=== PATIENT | female | born 1945 | race Caucasian/White ===

== ENCOUNTER → 2025-07-14 13:44 | Outpatient (REF) | payer MEDICARE, SELFPAY | LOC: HWRAD 13:44 | PROVIDERS: ATTENDING PHYSICIAN Specialist | DX: T84.028A Dislocation of other internal joint prosthesis, initial encounter (principal); Z96.611 Presence of right artificial shoulder joint | CPT/HCPCS: 73200 ==

== ENCOUNTER 2025-08-11 08:17 | Inpatient (IN) | payer MEDICARE, SELFPAY ==
--- NOTE | 2025-07-31 09:57 | CM ---
Addendum entered by Latrice Rivero RN 08/11/25 13:48:
CM spoke and daughter at bedside. Patient confirmed that she is returning to her [place] address. In the event she will needs home OT pending PT evaluation, CM sent referral via [facility] to [facility]. CM will await acceptance by [facility].
Original Note:
Demographics: confirmed
Living situation: lives alone, daughter will be driving her back home to [place] and staying with her
Support Person Post Operatively: Daughter
History of
VN: yes, not currently on service
SNF: yes, cannot remember where
Outpatient: Pending surgical clearance
Has patient purchased required equipment: yes, has a cane
PCP: Ankita
Pharmacy: [address]
Post Operative Discharge Plan: Home with daughter.
[2025-08-02 11:32] LABS: Hematocrit 36.8 % (37.0-47.0); Hemoglobin 12.0 g/dL (12.0-16.0); Mean Corp Hgb Conc. 32.6 g/dL (33.0-37.0); Mean Corpuscular Volume 86.4 fL (81.0-99.0); Platelet Count 345 10^3/uL (130-400); Red Cell Dist. Width 13.7 % (11.5-14.5)
[2025-08-02 11:53] LABS: ALT (SGPT) 13 U/L (0-35); AST (SGOT) 23 U/L (14-36); Albumin 4.4 g/dl (3.5-5.0); Alkaline Phosphatase 73 U/L (38-126); Blood Urea Nitrogen 33 mg/dl (7-17); Calcium 9.5 mg/dl (8.4-10.2); Carbon Dioxide 26 mmol/L (22-30); Chloride 103 mmol/L (98-107); Glucose 66 mg/dl (70-99); Potassium 4.2 mmol/L (3.5-5.1); Sodium 137 mmol/L (135-145); Total Protein 7.4 g/dl (6.3-8.2); eGFR > 60.00
[2025-08-02 13:25] LABS: Glycohemoglobin (HgbA1c) 5.6 % (4.0-5.6)
[2025-08-02 14:22] VITALS: BMI 27.3
[2025-08-03 08:41] VITALS: BMI 27.3
[2025-08-11] VITALS (18 sets, daily range): BP systolic 79–139; BP diastolic 46–75; PULSE 57; O2SAT 100; BMI 27.3
[2025-08-11] MEDS: TYLENOL 1000 MG PO (09:15)
[2025-08-11] MEDS: CELEBREX 200 MG PO (09:19)
[2025-08-11] MEDS: NORMOSOL-R/PLASMALYTE-A 1000 IV ×2 (09:36→14:34)
[2025-08-11] MEDS: VANCOCIN 200 IV ×2 (09:39→20:00)
[2025-08-11] MEDS: ULTRAM 50 MG PO (12:14)
--- NOTE | 2025-08-11 12:21 | W.DS.TRANS ---
DC Summary - Media Marketing Director
-
Discharge Instructions:
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
p Revision of R Reverse TSA w/ Dr Abebe 08/11/2025
Diet Regular
Additional Diets Adequate hydration, minimize opioids, and wear
TEDS to prevent hypotension/dizziness.
Activity As tolerated
Additional Activity Non-weightbearing right upper extremity.
Driving Restrictions Not until seen by your Dr
Bathing Restrictions OK to Shower
Wound Care Dressing to be removed at 2 week follow-up with
surgeon's office.
Instructions:
Stand-Alone Forms: Total Shoulder Replacement D/C
Changes to Home Medications: Yes
Discharge Medications:
DC Medications w/original date entered in [facility]
alprazolam 0.5 mg tablet 0.5 mg PO DAILY PRN anxiety 07/31/25
cholecalciferol (vitamin D3) 125 mcg (5,000 unit) tablet (Vitamin D3) 250 mcg PO DAILY 07/31/25
estradiol 0.025 mg/24 hr weekly transdermal patch 1 patch transdermal SA 07/31/25
levothyroxine 75 mcg tablet (Synthroid) 75 mcg PO DAILY 07/31/25
liothyronine 5 mcg tablet 5 mcg PO DAILY 07/31/25
metoprolol succinate 50 mg tablet,extended release 24 hr 50 mg PO Q12H 07/31/25
progesterone micronized 200 mg capsule 200 mg PO HS 07/31/25
mupirocin 2 % topical ointment 1 applic intranasal BID #1 tube 08/02/25
celecoxib 200 mg capsule (Celebrex) 200 mg PO DAILY #14 caps 08/08/25
dexamethasone 4 mg tablet 4 mg PO BID Anti-inflammatory #5 tabs 08/08/25
famotidine 20 mg tablet (Pepcid) 20 mg PO HS #30 tabs 08/08/25
gabapentin 300 mg capsule 300 mg PO HS neuropathic pain/sleep #10 caps 08/08/25
ondansetron HCl 4 mg tablet 4 mg PO Q6H PRN nausea and vomiting #30 tabs 08/08/25
tramadol 50 mg tablet 50 - 100 mg (1 - 2 x 50 mg) PO Q6H PRN moderate-severe pain #30 tabs 08/08/25
Myrbetriq 1 tab PO DAILY 08/11/25
Saccharomyces boulardii 250 mg capsule (Florastor) 250 mg PO BID #1 cap 08/11/25
acetaminophen 500 mg tablet 1,000 mg (2 x 500 mg) PO QID #0 tabs 08/11/25
aspirin 325 mg tablet 325 mg PO DAILY blood clot prevention #1 tab 08/11/25
docusate sodium 100 mg capsule (Colace) 100 mg PO BID stool softner #1 cap 08/11/25
doxycycline hyclate 100 mg capsule 100 mg PO BID infection prevention #10 caps 08/11/25
magnesium hydroxide 400 mg/5 mL oral suspension (Milk of Magnesia) 30 ml PO HS PRN constipation #1 mL 08/11/25
sennosides 8.6 mg tablet (Senokot) 17.2 mg (2 x 8.6 mg) PO BID laxative #2 tabs 08/11/25
spironolactone 25 mg-hydrochlorothiazide 25 mg tablet 1 tab PO DAILY #0 tabs 08/11/25
Home Medication Changes
mupirocin 2 % topical ointment 1 applic intranasal BID #1 tube 08/02/25
celecoxib 200 mg capsule (Celebrex) 200 mg PO DAILY #14 caps 08/08/25
dexamethasone 4 mg tablet 4 mg PO BID Anti-inflammatory #5 tabs 08/08/25
famotidine 20 mg tablet (Pepcid) 20 mg PO HS #30 tabs 08/08/25
gabapentin 300 mg capsule 300 mg PO HS neuropathic pain/sleep #10 caps 08/08/25
ondansetron HCl 4 mg tablet 4 mg PO Q6H PRN nausea and vomiting #30 tabs 08/08/25
tramadol 50 mg tablet 50 - 100 mg (1 - 2 x 50 mg) PO Q6H PRN moderate-severe pain #30 tabs 08/08/25
Saccharomyces boulardii 250 mg capsule (Florastor) 250 mg PO BID #1 cap 08/11/25
acetaminophen 500 mg tablet 1,000 mg (2 x 500 mg) PO QID #0 tabs 08/11/25
aspirin 325 mg tablet 325 mg PO DAILY blood clot prevention #1 tab 08/11/25
docusate sodium 100 mg capsule (Colace) 100 mg PO BID stool softner #1 cap 08/11/25
doxycycline hyclate 100 mg capsule 100 mg PO BID infection prevention #10 caps 08/11/25
magnesium hydroxide 400 mg/5 mL oral suspension (Milk of Magnesia) 30 ml PO HS PRN constipation #1 mL 08/11/25
sennosides 8.6 mg tablet (Senokot) 17.2 mg (2 x 8.6 mg) PO BID laxative #2 tabs 08/11/25
spironolactone 25 mg-hydrochlorothiazide 25 mg tablet 1 tab PO DAILY #0 tabs 08/11/25
Pending Results: No
[2025-08-11] MEDS: TYLENOL 650 MG PO ×3 (14:34→20:00)
[2025-08-11] MEDS: SYNTHROID 75 MCG PO (14:35)
[2025-08-11] MEDS: CYTOMEL 5 MICROGRAM PO (14:35)
[2025-08-11] MEDS: XANAX 0.5 MG PO (16:18)
[2025-08-11] MEDS: TORADOL 15 MG IV (17:13)
[2025-08-11] MEDS: ASPIRIN 325 MG PO (17:13)
[2025-08-11] MEDS: DECADRON 4 MG IV (17:14)
[2025-08-11] MEDS: COLACE 100 MG PO (20:00)
[2025-08-11] MEDS: SENOKOT 17.2 MG PO (20:01)
[2025-08-11] MEDS: BACTROBAN 2% OINTMENT 1 APPLIC NASAL (21:33)
[2025-08-11] MEDS: NEURONTIN 300 MG PO (21:33)
[2025-08-11] MEDS: PEPCID 20 MG PO (21:33)
[2025-08-12 03:00] VITALS: BP 131/67
[2025-08-12] MEDS: TYLENOL PO ×2 (04:41)
[2025-08-12] MEDS: DECADRON 4 MG IV (05:20)
[2025-08-12] MEDS: SYNTHROID 75 MCG PO (05:20)
[2025-08-12] MEDS: TORADOL 15 MG IV (05:21)
[2025-08-12 07:35] VITALS: BP 119/54
--- NOTE | 2025-08-12 09:03 | CM ---
CM following re: discharge planning.
Reviewed pt's chart, met with pt.
per MD pt is early discharge today. Pt is aware and she stated her daughter is coming to transport her home to [facility].
IMM reviewed, placed on chart, pt has a copy.
[facility]NE[facility] in [facility] confirmed that pt is accepted for VN services.
Please fax discharge instructions to Imani SNEED at [phone] a comment: [facility]
D/C plan: home in [facility] with [facility] region. Daughter to transport
[2025-08-12 09:15] VITALS: BP 114/52; BP 127/54; PULSE 95; O2SAT 96
[2025-08-12] MEDS: ALDACTONE 25 MG PO (09:22)
[2025-08-12] MEDS: TYLENOL 650 MG PO (09:22)
[2025-08-12] MEDS: MYRBETRIQ EXTENDED RELEASE 50 MG PO (09:23)
[2025-08-12] MEDS: COLACE 100 MG PO (09:24)
[2025-08-12] MEDS: ORETIC 25 MG PO (09:24)
[2025-08-12] MEDS: CELEBREX 200 MG PO (09:24)
[2025-08-12] MEDS: SENOKOT 17.2 MG PO (09:24)
[2025-08-12] MEDS: CYTOMEL 5 MICROGRAM PO (09:24)
[2025-08-12] MEDS: BACTROBAN 2% OINTMENT 1 APPLIC NASAL (09:25)
[2025-08-12] MEDS: ASPIRIN 325 MG PO (09:25)
--- NOTE | 2025-08-12 10:35 | W.PN.ORTHO ---
Today's Communication / Plan
-
Patient appears to be doing very well this morning. She is tolerating abductor pillow sling and pain has been controlled. She is ready to go home. Follow-up as scheduled in 2 weeks.
Assessment
.
Distal Motor Intact: Yes
Dressing:
Clean, dry and intact.
Plan
.
Surgery / Date: 08/11 [place]
DVT Prophylaxis: Aspirin
Activity:
Out of bed.
PT/OT
Discharge Plan: Home
Subjective
.
.:
Patient resting comfortably. Daughter at bedside with her.
Vital Signs and Labs
.
Vital Signs and Labs:
Lab Results
08/02/25 10:43
08/02/25 10:43
Temp Pulse Resp BP Pulse Ox
98.5 F 90 16 119/54 95
08/12/25 07:35 08/12/25 07:35 08/12/25 07:35 08/12/25 07:35 08/12/25 07:35
4 intraoperative tissue cultures/Gram stain have no growth thus far
Non-invasive Hgb result: 10.3
--- NOTE | 2025-08-12 10:38 | W.DS.TRANS ---
DC Summary - Biological Aide
-
Discharge Instructions:
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
p Revision of R Reverse TSA w/ Dr Abebe 08/11/2025
Diet Regular
Additional Diets Adequate hydration, minimize opioids, and wear
TEDS to prevent hypotension/dizziness.
Activity As tolerated
Additional Activity Non-weightbearing right upper extremity.
Driving Restrictions Not until seen by your Dr
Bathing Restrictions OK to Shower
Wound Care Dressing to be removed at 2 week follow-up with
surgeon's office.
Instructions:
Stand-Alone Forms: Total Shoulder Replacement D/C
Changes to Home Medications: No
Discharge Medications:
DC Medications w/original date entered in charity: water
alprazolam 0.5 mg tablet 0.5 mg PO DAILY PRN anxiety 07/31/25
cholecalciferol (vitamin D3) 125 mcg (5,000 unit) tablet (Vitamin D3) 250 mcg PO DAILY Supplement 07/31/25
estradiol 0.025 mg/24 hr weekly transdermal patch 1 patch transdermal SA Hormonal Agent 07/31/25
levothyroxine 75 mcg tablet (Synthroid) 75 mcg PO DAILY Thyroid 07/31/25
liothyronine 5 mcg tablet 5 mcg PO DAILY Thyroid 07/31/25
metoprolol succinate 50 mg tablet,extended release 24 hr 50 mg PO Q12H Heart Failure 07/31/25
progesterone micronized 200 mg capsule 200 mg PO HS Hormonal Agent 07/31/25
mupirocin 2 % topical ointment 1 applic intranasal BID #1 tube 08/02/25
celecoxib 200 mg capsule (Celebrex) 200 mg PO DAILY #14 caps 08/08/25
dexamethasone 4 mg tablet 4 mg PO BID Anti-inflammatory #5 tabs 08/08/25
famotidine 20 mg tablet (Pepcid) 20 mg PO HS #30 tabs 08/08/25
gabapentin 300 mg capsule 300 mg PO HS neuropathic pain/sleep #10 caps 08/08/25
ondansetron HCl 4 mg tablet 4 mg PO Q6H PRN nausea and vomiting #30 tabs 08/08/25
tramadol 50 mg tablet 50 - 100 mg (1 - 2 x 50 mg) PO Q6H PRN moderate-severe pain #30 tabs 08/08/25
Myrbetriq 1 tab PO DAILY 08/11/25
Saccharomyces boulardii 250 mg capsule (Florastor) 250 mg PO BID #1 cap 08/11/25
acetaminophen 500 mg tablet 1,000 mg (2 x 500 mg) PO QID #0 tabs 08/11/25
aspirin 325 mg tablet 325 mg PO DAILY blood clot prevention #1 tab 08/11/25
docusate sodium 100 mg capsule (Colace) 100 mg PO BID stool softner #1 cap 08/11/25
doxycycline hyclate 100 mg capsule 100 mg PO BID infection prevention #10 caps 08/11/25
magnesium hydroxide 400 mg/5 mL oral suspension (Milk of Magnesia) 30 ml PO HS PRN constipation #1 mL 08/11/25
sennosides 8.6 mg tablet (Senokot) 17.2 mg (2 x 8.6 mg) PO BID laxative #2 tabs 08/11/25
spironolactone 25 mg-hydrochlorothiazide 25 mg tablet 1 tab PO DAILY #0 tabs 08/11/25
Home Medication Changes
Pending Results: No
[2025-08-12 11:25] VITALS: BP 118/55
--- NOTE | 2025-08-14 12:08 | CM ---
VINAYAK received call from Deya at [facility]. VINAYAK sent discharge summary to Deya to update for services.
== END 2025-08-12 12:10 | disposition home health service (06) | DRG 483 ==
LOC: 2 SOUTH 08:17
PROVIDERS: ADMITTING PHYSICIAN Specialist; FAMILY PHYSICIAN Internal Medicine
PROC: 0RRJ00Z Replacement of Right Shoulder Joint with Reverse Ball and Socket Synthetic Substitute, Open Approach (ICD-10-PCS; 2025-08-11)
PROC: 0RPJ0JZ Removal of Synthetic Substitute from Right Shoulder Joint, Open Approach (ICD-10-PCS; 2025-08-11)
DX: T84.028A Dislocation of other internal joint prosthesis, initial encounter (principal); M97.31XA Periprosthetic fracture around internal prosthetic right shoulder joint, initial encounter; I10 Essential (primary) hypertension; G47.33 Obstructive sleep apnea (adult) (pediatric); K21.9 Gastro-esophageal reflux disease without esophagitis; K22.70 Barrett's esophagus without dysplasia; K90.0 Celiac disease; E06.3 Autoimmune thyroiditis; F32.A Depression, unspecified; F41.9 Anxiety disorder, unspecified; G43.909 Migraine, unspecified, not intractable, without status migrainosus; H91.93 Unspecified hearing loss, bilateral; M10.9 Gout, unspecified; M79.7 Fibromyalgia; N32.81 Overactive bladder; R32 Unspecified urinary incontinence; M85.80 Other specified disorders of bone density and structure, unspecified site; Y79.2 Prosthetic and other implants, materials and accessory orthopedic devices associated with adverse incidents; Z86.718 Personal history of other venous thrombosis and embolism; Z88.1 Allergy status to other antibiotic agents; Z88.2 Allergy status to sulfonamides; Z79.890 Hormone replacement therapy; Z79.899 Other long term (current) drug therapy; Z87.820 Personal history of traumatic brain injury; Z87.891 Personal history of nicotine dependence; Z91.199 Patient's noncompliance with other medical treatment and regimen due to unspecified reason
CPT/HCPCS: 36415; 73020; 80053; 83036; 85027; 86850; 86900; 86901; 87070; 87176; 87205; 93005; 97166; 97535